=== PATIENT | male | born 1960 | race Two or more races ===

== ENCOUNTER 2021-11-25 12:16 | Inpatient (IN) | payer BC, OTHER ==
[2021-11-25] VITALS (7 sets, daily range): BP systolic 69–143; BP diastolic 48–95
[~2021-11-25] VITALS: Ht 185.4 cm; Wt 80.7 kg
[2021-11-25 13:12] LABS: Hemoglobin 7.4 g/dL (13.5-17.5); Mean Corpuscular Hemoglobin 25.4 pg (28.0-32.0); Mean Corpuscular Hgb Conc. 31.9 g/dL (32.0-36.0)
[2021-11-25 13:14] LABS: Hematocrit 23.1 % (41.0-53.0); Mean Corpuscular Volume 79.7 fL (80.0-100.0); Red Cell Distribution Width 17.4 % (11.8-14.3); White Blood Cell 2.8 10^3/uL (4.4-10.8)
[2021-11-25 13:29] LABS: Albumin 2.7 g/dL (3.4-5.0); Calcium 7.8 mg/dL (8.5-10.1)
[2021-11-25 13:32] LABS: BUN/Creatinine Ratio 14.4; Bilirubin, Total 1.3 mg/dL (0.2-1.0); Total Protein 6.4 g/dL (6.4-8.2)
[2021-11-25 13:35] LABS: Lactic Acid w/Reflex 6.5 mmol/L (0.4-2.0); Potassium 5.6 mmol/L (3.5-5.1)
[2021-11-25 13:55] LABS: Basophils % (manual) 0 (0.0-2.0); Blast Cells 0; Eosinophils % (manual) 0 (0-7); Metamyelocytes % 0; Myelocytes % 0; Promyelocytes % 0; Reactive Lymphocytes 0
[2021-11-25 14:37] LABS: Band Neutrophils % (manual) 59; Lymphocytes % (manual) 5 (10.0-50.0); Monocytes % (manual) 1 (0-12)
[2021-11-25] MEDS ORDERED: SODIUM CHLORIDE 0.9% 1,000 ML IV ONE (14:45)
[2021-11-25] MEDS ORDERED: cefTRIAXone 1GM/50ML D5W 50 ML IV ONE (14:45)
[2021-11-25] MEDS ORDERED: PIPERACILLIN-TAZO 4.5GM 100 ML IV ONE (16:00)
[2021-11-25] MEDS ORDERED: SODIUM CHLORIDE 0.9% 500 ML IV ONE (16:00)
[2021-11-25] MEDS ORDERED: ACETAMINOPHEN 500 MG TAB PO ONE (16:45)
[2021-11-25] MEDS ORDERED: NITROGLYCERIN 0.4 MG SL TAB SL PRN (17:00)
[2021-11-25] MEDS ORDERED: MORPHINE SULFATE INJ 2 MG/ml SYRG IV PRN ×2 (17:00→17:30)
[2021-11-25] MEDS ORDERED: ALBUTEROL SULF 2.5 MG/0.5ML(0.5%) NEB SOLN NEB ONE (17:15)
[2021-11-25] MEDS ORDERED: DEXTROSE (50%) 50ML SYRG IV ONE ×3 (17:15→21:45)
[2021-11-25] MEDS ORDERED: SODIUM BICARBONATE 8.4% INJ 50ML SYRINGE IV ONE (17:15)
[2021-11-25] MEDS ORDERED: FUROSEMIDE 40 MG/4 ML VIAL IV ONE (17:15)
[2021-11-25] MEDS ORDERED: SODIUM ZIRCONIUM CYCL 10 GM PAK PO ONE (17:15)
[2021-11-25] MEDS ORDERED: InsuLIN REG 1unit/0.01ml Soln (100units/ml) IV ONE (17:15)
[2021-11-25] MEDS ORDERED: CALCIUM GLUC 1,000mg/50ml-NS 50 ML IV ONE (17:15)
[2021-11-25] MEDS ORDERED: ACETAMINOPHEN 325 MG TAB PO PRN (17:30)
[2021-11-25] MEDS ORDERED: VANCOMYCIN PER PHARMACY 1,000 MG IV SCH (17:30)
[2021-11-25] MEDS ORDERED: LACTATED RINGER'S 2,450 ML IV ONE (17:30)
[2021-11-25] MEDS ORDERED: LORazepam 2MG/ML-1ML VIAL IV PRN (17:30)
[2021-11-25] MEDS ORDERED: CALCIUM CHL 100MG/ML 500 MG in D5W 5% 100 ML IV ONE (17:45)
[2021-11-25 17:49] LABS: Magnesium 1.6 mg/dL (1.6-2.6); Phosphorus 6.6 mg/dL (2.5-4.90)
[2021-11-25] MEDS ORDERED: LACTATED RINGER'S 1,000 ML IV ONE (18:30)
[2021-11-25] MEDS ORDERED: D5W/SOD CHLO 0.9% 1,000 ML IV SCH (19:30)
[2021-11-25] MEDS ORDERED: DEXTROSE 50% SYRINGE 50 ML IV ONE ×2 (19:30→21:40)
[2021-11-25] MEDS ORDERED: VANCOMYCIN 1GM/250ML 250 ML IV SCH (20:00)
[2021-11-25] MEDS: SODIUM ZIRCONIUM CYCL 10 GM PAK PO SCH (21:56)
[2021-11-25 22:08] LABS: INR 1.85 (0.9-1.15); Partial Thromboplastin Time 68.8 sec (23.6-33.0)
[2021-11-25] MEDS: PIPERACILLIN-TAZOB 3.375GM 100 ML IV SCH (22:37)
[2021-11-25] MEDS ORDERED: NOREPINEPHRINE 8 MG/250ML KIT 250 ML IV ONE (23:23)
[2021-11-25] MEDS: NOREPINEPHRINE 8 MG/250ML KIT 250 ML IV SCH (23:29)
[2021-11-26] VITALS (12 sets, daily range): BP systolic 66–122; BP diastolic 42–75
[2021-11-26] MEDS: ENOXAPARIN SOD 80 MG/0.8ML SYRINGE SC ONE ×2 (05:00→11:32)
[2021-11-26] MEDS: PIPERACILLIN-TAZOB 3.375GM 100 ML IV SCH ×3 (05:16→16:18)
[2021-11-26] MEDS ORDERED: DEXTROSE 50% SYRINGE 50 ML IV ONE ×3 (05:32→06:48)
[2021-11-26] MEDS ORDERED: DEXTROSE (50%) 50ML SYRG IV ONE ×3 (05:45→10:00)
[2021-11-26] MEDS: SODIUM ZIRCONIUM CYCL 10 GM PAK PO SCH ×3 (06:00→22:11)
[2021-11-26 06:54] LABS: Hemoglobin 7.6 g/dL (13.5-17.5); Mean Corpuscular Volume 80.6 fL (80.0-100.0); White Blood Cell 10.6 10^3/uL (4.4-10.8)
[2021-11-26 06:56] LABS: Hematocrit 24.1 % (41.0-53.0); Mean Corpuscular Hemoglobin 25.3 pg (28.0-32.0); Mean Corpuscular Hgb Conc. 31.4 g/dL (32.0-36.0); Red Blood Cells 2.99 10^6/uL (4.5-5.90); Red Cell Distribution Width 17.5 % (11.8-14.3)
[2021-11-26 07:22] LABS: Basophils % (manual) 0 (0.0-2.0); Blast Cells 0; Eosinophils % (manual) 0 (0-7); Myelocytes % 0; Promyelocytes % 0; Reactive Lymphocytes 0
[2021-11-26 07:47] LABS: Chloride 96 mmol/L (98-107); Sodium 125 mmol/L (136-145)
[2021-11-26 08:00] LABS: Alanine Aminotransferase 261 U/L (16-61); Albumin 1.6 g/dL (3.4-5.0); Alkaline Phosphatase 162 U/L (45-117); Anion Gap 12 (5-15); Aspartate Aminotransferase 993 U/L (15-37); BUN/Creatinine Ratio 13.2; Blood Urea Nitrogen 51 mg/dL (7-18); Calcium 6.6 mg/dL (8.5-10.1); Carbon Dioxide 17 mmol/L (21-32); Cholesterol 110 mg/dL (< 200); Creatine Kinase IFCC 334 U/L (39-308); GFR African American 21 mL/min; GFR Non-African American 17 mL/min; Glucose 223 mg/dL (74-106); HDL Cholesterol 21 mg/dL (40-59); LDL Cholesterol 41 mg/dL (< 100); Lipase 53 U/L (73-393); Phosphorus 8.8 mg/dL (2.5-4.90); Triglycerides 224 mg/dL (< 150); Uric Acid 11.2 mg/dL (3.5-7.2)
[2021-11-26 08:08] LABS: CRP High Sensitivity > 19.0 mg/dL (< 0.3)
[2021-11-26 08:09] LABS: Potassium 6.4 mmol/L (3.5-5.1)
[2021-11-26 08:32] LABS: Band Neutrophils % (manual) 77; Lymphocytes % (manual) 4 (10.0-50.0); Metamyelocytes % 11; Monocytes % (manual) 1 (0-12)
[2021-11-26 08:44] LABS: INR 2.16 (0.9-1.15); Partial Thromboplastin Time 66.6 sec (23.6-33.0)
[2021-11-26] MEDS ORDERED: PROPOFOL 100 ML IV ONE (08:52)
[2021-11-26] MEDS ORDERED: ETOMIDATE (2MG/ML) 20ML VIAL IV ONE ×2 (08:52→09:30)
[2021-11-26] MEDS ORDERED: ROCURONIUM 10MG/ML 10ML VIAL IV ONE ×2 (08:53→09:30)
[2021-11-26] MEDS ORDERED: fentaNYL Drip 2500mCg/250mlNS 250 ML IV ONE (08:54)
[2021-11-26] MEDS: fentaNYL Drip 2500mCg/250mlNS 250 ML IV SCH (09:27)
[2021-11-26] MEDS ORDERED: SODIUM BICARBONATE 50ML VIAL 150 ML in D5W 5% 1,000 ML IV SCH (09:30)
[2021-11-26] MEDS ORDERED: DEXTROSE 50% SYRINGE 100 ML IV ONE (09:46)
[2021-11-26] MEDS: PROPOFOL 100 ML IV SCH (10:19)
[2021-11-26] MEDS: VASOPRESSIN 50 UNITS in D5W 5% 247.5 ML IV SCH ×4 (10:24→12:46)
[2021-11-26 10:32] LABS: Alcohol, Urine < 3.0 mg/dL (0-10); Amphetamine Screen, Urine NEGATIVE (NEGATIVE); Barbiturate Scree,Urine NEGATIVE (NEGATIVE); Benzodiazephine Screen, Urine POSITIVE (NEGATIVE); Cannabinoid Screen, Urine NEGATIVE (NEGATIVE); Cocaine Screen, Urine NEGATIVE (NEGATIVE); Opiate Scree,Urine POSITIVE (NEGATIVE); Phencyclidine Screen, Urine NEGATIVE (NEGATIVE); Urine Bacteria NONE SEEN /hpf (None Seen); Urine Blood 1+ /uL (Negative); Urine Specific Gravity 1.015 (1.001-1.035); Urine WBC 7 /hpf (0 - 3)
[2021-11-26 10:34] LABS: Protein, Urine 344.6 mg/dL (0.0-11.9)
[2021-11-26 14:57] LABS: Creatinine, Urine 64 mg/dL (30.0-125.0); Sodium Urine 53 mmol/L (40-220)
[2021-11-26] MEDS ORDERED: FUROSEMIDE 100 MG/10ML VIAL IV ONE (15:15)
[2021-11-26] MEDS ORDERED: VANCOMYCIN 1GM/250ML 250 ML IV ONE (15:30)
[2021-11-26] MEDS ORDERED: SODIUM BICARBONATE 8.4% INJ 50ML SYRINGE IV ONE (15:45)
[2021-11-26] MEDS ORDERED: ALBUTEROL SULF 2.5 MG/0.5ML(0.5%) NEB SOLN NEB ONE (15:45)
[2021-11-26] MEDS ORDERED: CALCIUM GLUC 1,000mg/50ml-NS 50 ML IV ONE (15:45)
[2021-11-26] MEDS: SODIUM BICARBONATE 50ML VIAL 150 ML in D5W 5% 1,000 ML IV SCH ×2 (16:00→20:55)
[2021-11-26] MEDS: ALBUMIN 25% 100 ML IV SCH (16:18)
[2021-11-26] MEDS ORDERED: SODIUM CHLORIDE 0.9% 2,000 ML IV ONE (16:30)
[2021-11-26] MEDS ORDERED: MEROPENEM 500MG IVPB 50 ML IV SCH (17:00)
[2021-11-26] MEDS: ENOXAPARIN SOD 40 MG/0.4 ML SYRINGE SC SCH (17:00)
[2021-11-26] MEDS: MEROPENEM 500MG IVPB 50 ML IV SCH (17:55)
[2021-11-26] MEDS: HYDROCORTISONE SOD SUCC 100 MG/2ML INJ VIAL IV SCH ×2 (17:55→22:11)
[2021-11-26] MEDS: BUMETANIDE 2.5mg/10ml (0.25 mg/ml) INJ IV SCH (17:56)
[2021-11-26 18:20] LABS: Calcium 6.2 mg/dL (8.5-10.1)
[2021-11-26 18:31] LABS: BUN/Creatinine Ratio 13.1
[2021-11-26 18:35] LABS: Potassium 5.9 mmol/L (3.5-5.1)
[2021-11-26] MEDS: NOREPINEPHRINE 8 MG/250ML KIT 250 ML IV SCH (23:15)
[2021-11-26] MEDS ORDERED: AMIODARONE HCL 150 MG in D5W 5% 100 ML IV ONE (23:15)
[2021-11-26] MEDS ORDERED: AMIODARONE 450mg/250ml AE 250 ML IV SCH (23:30)
[2021-11-26] MEDS ORDERED: AMIODARONE HCL (50 MG/ ML) 3 ML VIAL IV ONE (23:52)
[2021-11-27] VITALS (14 sets, daily range): BP systolic 63–119; BP diastolic 39–79
[2021-11-27] MEDS: ALBUMIN 25% 100 ML IV SCH ×2 (00:03→08:29)
[2021-11-27] MEDS: ENOXAPARIN SOD 40 MG/0.4 ML SYRINGE SC SCH (05:00)
[2021-11-27] MEDS: MEROPENEM 500MG IVPB 50 ML IV SCH (05:15)
[2021-11-27] MEDS ORDERED: AMIODARONE 450mg/250ml AE 250 ML IV SCH (05:30)
[2021-11-27] MEDS: SODIUM ZIRCONIUM CYCL 10 GM PAK PO SCH (06:06)
[2021-11-27] MEDS: HYDROCORTISONE SOD SUCC 100 MG/2ML INJ VIAL IV SCH (06:10)
[2021-11-27] MEDS: BUMETANIDE 2.5mg/10ml (0.25 mg/ml) INJ IV SCH (06:20)
[2021-11-27 06:45] LABS: Albumin 1.8 g/dL (3.4-5.0); Bilirubin, Direct 0.8 mg/dL (0-0.2)
[2021-11-27 06:47] LABS: Bilirubin, Total 1.4 mg/dL (0.2-1.0); Total Protein 5.2 g/dL (6.4-8.2)
[2021-11-27] MEDS: SODIUM BICARBONATE 50ML VIAL 150 ML in D5W 5% 1,000 ML IV SCH (06:50)
[2021-11-27 08:46] LABS: BUN/Creatinine Ratio 12.9
[2021-11-27 08:50] LABS: Red Blood Cells 2.21 10^6/uL (4.5-5.90)
[2021-11-27 08:52] LABS: Calcium 5.2 mg/dL (8.5-10.1); Hematocrit 16.5 % (41.0-53.0); Mean Corpuscular Hemoglobin 27.6 pg (28.0-32.0); Mean Corpuscular Volume 74.9 fL (80.0-100.0); Potassium 5.6 mmol/L (3.5-5.1); Red Cell Distribution Width 17.8 % (11.8-14.3); White Blood Cell 26.9 10^3/uL (4.4-10.8)
[2021-11-27 08:56] LABS: Mean Corpuscular Hgb Conc. 36.9 g/dL (32.0-36.0)
[2021-11-27 08:57] LABS: Basophils % (manual) 0 (0.0-2.0); Blast Cells 0; Eosinophils % (manual) 0 (0-7); Hemoglobin 6.1 g/dL (13.5-17.5); Myelocytes % 0; Promyelocytes % 0; Reactive Lymphocytes 0
[2021-11-27 09:21] LABS: Band Neutrophils % (manual) 33; Lymphocytes % (manual) 4 (10.0-50.0); Metamyelocytes % 1; Monocytes % (manual) 3 (0-12)
[2021-11-27] MEDS: fentaNYL Drip 2500mCg/250mlNS 250 ML IV SCH (09:30)
[2021-11-27] MEDS: PROPOFOL 100 ML IV SCH (09:44)
[2021-11-27] MEDS ORDERED: MIDAZOLAM HCL 5 MG/ML-1ML VIAL ONE (11:36)
[2021-11-27] MEDS ORDERED: fentaNYL CITRATE 100 MCG/2 ML VL ONE (11:37)
[2021-11-27] MEDS ORDERED: LIDOCAINE 2%HCL (LOCAL ANESTH.) INJ 20ML MDV ONE (11:42)
[2021-11-27] MEDS ORDERED: EPINEPHrine HCL 1 MG/1 ML AMP ONE (11:42)
[2021-11-27] MEDS ORDERED: GLYCOPYRROLATE 0.2 MG/ML 1ML VIAL ONE (11:42)
[2021-11-27] MEDS ORDERED: LIDOCAINE HCL 2% TOP JELLY 5ML TOP ONE (11:42)
[2021-11-27] MEDS ORDERED: VANCOMYCIN 1GM/250ML 250 ML IV ONE (11:45)
[2021-11-27] MEDS ORDERED: MORPHINE SULFATE INJ 2 MG/ml SYRG IV PRN (13:00)
[2021-11-27] MEDS ORDERED: LORazepam 2MG/ML-1ML VIAL IV ONE (13:00)
== END 2021-11-27 14:05 | DRG 871 ==
LOC: ER 12:16 → EDBD 12:16 → TELE 17:00 → ICU WEST 11-27 10:52
PROVIDERS: ADMIT Hospitalist; ATTEND Internal Medicine Nephrology
PROC: 5A09357 Assistance with Respiratory Ventilation, Less than 24 Consecutive Hours, Continuous Positive Airway Pressure (ICD-10-PCS; 2021-11-25)
PROC: 5A1935Z Respiratory Ventilation, Less than 24 Consecutive Hours (ICD-10-PCS; principal; 2021-11-26)
PROC: 0BH17EZ Insertion of Endotracheal Airway into Trachea, Via Natural or Artificial Opening (ICD-10-PCS; 2021-11-26)
PROC: 02HV33Z Insertion of Infusion Device into Superior Vena Cava, Percutaneous Approach (ICD-10-PCS; 2021-11-26)
PROC: B548ZZA Ultrasonography of Superior Vena Cava, Guidance (ICD-10-PCS; 2021-11-26)
PROC: 05H933Z Insertion of Infusion Device into Right Brachial Vein, Percutaneous Approach (ICD-10-PCS; 2021-11-26)
PROC: B54MZZA Ultrasonography of Right Upper Extremity Veins, Guidance (ICD-10-PCS; 2021-11-26)
PROC: 0B9D8ZX Drainage of Right Middle Lung Lobe, Via Natural or Artificial Opening Endoscopic, Diagnostic (ICD-10-PCS; 2021-11-27)
PROC: 30233N1 Transfusion of Nonautologous Red Blood Cells into Peripheral Vein, Percutaneous Approach (ICD-10-PCS; 2021-11-27)
DX: A41.9 Sepsis, unspecified organism (principal); J18.9 Pneumonia, unspecified organism; I21.4 Non-ST elevation (NSTEMI) myocardial infarction; R65.21 Severe sepsis with septic shock; N17.0 Acute kidney failure with tubular necrosis; I26.99 Other pulmonary embolism without acute cor pulmonale; K72.00 Acute and subacute hepatic failure without coma; J96.01 Acute respiratory failure with hypoxia; C91.10 Chronic lymphocytic leukemia of B-cell type not having achieved remission; J98.11 Atelectasis; D61.818 Other pancytopenia; E44.0 Moderate protein-calorie malnutrition; D69.3 Immune thrombocytopenic purpura; E87.4 Mixed disorder of acid-base balance; Z99.11 Dependence on respirator [ventilator] status; Z94.81 Bone marrow transplant status; G89.29 Other chronic pain; Z20.822 Contact with and (suspected) exposure to COVID-19; M54.9 Dorsalgia, unspecified; E79.0 Hyperuricemia without signs of inflammatory arthritis and tophaceous disease; N18.32 Chronic kidney disease, stage 3b; E86.1 Hypovolemia; E87.5 Hyperkalemia; E83.39 Other disorders of phosphorus metabolism; Z86.718 Personal history of other venous thrombosis and embolism; Z86.2 Personal history of diseases of the blood and blood-forming organs and certain disorders involving the immune mechanism
CPT/HCPCS: 36415; 36600; 70450; 71045; 71250; 74176; 76705; 76775; 80048; 80053; 80061; 80076; 80202; 80307; 81001; 82550; 82570; 82728; 82805; 82962; 83605; 83615; 83690; 83735; 83880; 84100; 84132; 84156; 84300; 84443; 84484; 84550; 85007; 85027; 85379; 85610; 85652; 85730; 86141; 86850; 86900; 86901; 86920; 87040; 87070; 87077; 87081; 87086; 87186; 87205; 93005; 93306; 94002; 94003; 94640; 94644; 96365; 96366; 96367; 96375; 99291; G0378; J0171; J0696; J1815; J2185; J2250; J2543; J2704; J7060; P9047